=== PATIENT | male | born 1980 | race Hispanic/Latino ===

== ENCOUNTER 2017-06-18 16:07 | Emergency (ER) | payer SELFPAY ==
[2017-06-18 16:07] VITALS: BMI 20.7
[2017-06-18 16:28] VITALS: BP 113/68; PULSE 71; RESP 18; TEMP 97.2; O2SAT 98
--- NOTE | 2017-06-18 17:51 | C.PDOC ---
History Of Present Illness 37 y/o male presents to ED with complaints of facial fullness and back pain " for couple of weeks". Patient denies denies recent fall, recent injury, numbness , weakness, bladder/bowel incontinence and reports no PMD. No other complaints at this time. Chief Complaint (Nursing): Hip Pain History Per: Patient History/Exam Limitations: no limitations Onset/Duration Of Symptoms: Days Current Symptoms Are (Timing): Still Present Past Medical History Reviewed: Historical Data, Nursing Documentation, Vital Signs Vital Signs: Last Vital Signs Temp 97.2 F L 06/18/17 16:20 Pulse 71 06/18/17 16:20 Resp 18 06/18/17 16:20 BP 113/68 06/18/17 16:20 Pulse Ox 98 06/18/17 17:51 - Medical History PMH: No Chronic Diseases Surgical History: No Surg Hx Family History: States: No Known Family Hx - Social History Hx Alcohol Use: Yes Hx Substance Use: No - Immunization History Hx Tetanus Toxoid Vaccination: Yes Hx Influenza Vaccination: No Hx Pneumococcal Vaccination: No Review Of Systems Genitourinary: Negative for: Dysuria, Hematuria Musculoskeletal: Positive for: Back Pain Skin: Negative for: Rash Neurological: Negative for: Weakness, Numbness, Change in Speech, Dizziness Physical Exam - Physical Exam Appears: Non-toxic, No Acute Distress Skin: Normal Color, Warm, Dry, No Rash Head: Atraumatic, Normacephalic Eye(s): bilateral: Normal Inspection, PERRL, EOMI Oral Mucosa: Moist Neck: Supple Chest: Symmetrical Cardiovascular: Rhythm Regular Respiratory: Normal Breath Sounds, No Rales, No Rhonchi, No Wheezing Gastrointestinal/Abdominal: Soft, No Tenderness, No Guarding, No Rebound Back: No CVA Tenderness, No Paraspinal Tenderness Neurological/Psych: Oriented x3, Normal Speech, Normal Motor, Normal Sensation Gait: Steady ED Course And Treatment O2 Sat by Pulse Oximetry: 98 (RA) Pulse Ox Interpretation: Normal Disposition - Disposition Referrals: [facility] [Outside] [facility] [Outside] Disposition: HOME/ ROUTINE Disposition Time: 16:40 Condition: GOOD Additional Instructions: Thank you for letting us take care of you today. The emergency medical care you received today was directed at your acute symptoms. If you were prescribed any medication, please fill it and take as directed. It may take several days for your symptoms to resolve. Return to the Emergency Department if your symptoms worsen, do not improve, or if you have any other problems. Please contact your doctor or call one of the physicians/clinics you have been referred to that are listed on the Patient Visit Information form that is included in your discharge packet. Bring any paperwork you were given at discharge with you along with any medications you are taking to your follow up visit. Our treatment cannot replace ongoing medical care by a primary care provider (PCP) outside of the emergency department. Thank you for allowing the [facility] team to be part of your care today. Follow up with the clinic in 3-5 days for outpatient care and management. Prescriptions: Fluticasone Propionate [Flonase] 1 spr NA BID #1 bottle Ibuprofen [Motrin] 600 mg PO Q6 PRN #20 tab PRN Reason: Pain, Moderate (4-7) Instructions: Allergies (ED) Forms: Work Excuse - Clinical Impression Clinical Impression: Seasonal allergies - Scribe Statement The provider has reviewed the documentation as recorded by the Aylin Monzon All medical record entries made by the Mauricioiblindsey were at my direction and personally dictated by me. I have reviewed the chart and agree that the record accurately reflects my personal performance of the history, physical exam, medical decision making, and the department course for this patient. I have also personally directed, reviewed, and agree with the discharge instructions and disposition.
== END 2017-06-18 16:54 | disposition home or self-care (01) ==
LOC: C.ER 16:07
DX: J30.2 Other seasonal allergic rhinitis (principal)

== ENCOUNTER 2017-06-25 04:42 | Emergency (ER) | payer SELFPAY ==
[2017-06-25 04:43] VITALS: BMI 20.7
[2017-06-25 04:55] VITALS: RESP 18
--- NOTE | 2017-06-25 05:32 | C.PDOC ---
History Of Present Illness 37 year old male presents to the ER with a complaint of pain to the left groin radiating to the left thigh and knee since last week that worsens with movement. Patient was seen on 06/18/17 and given medication for the same pain but states it is not helping. Denies weakness, numbness, or trauma. Time Seen by Provider: 06/25/17 04:54 Chief Complaint (Nursing): Lower Extremity Problem/Injury History Per: Patient History/Exam Limitations: no limitations Onset/Duration Of Symptoms: Days Current Symptoms Are (Timing): Still Present Recent travel outside of the [place]: No Past Medical History Reviewed: Historical Data, Nursing Documentation, Vital Signs Vital Signs: Last Vital Signs Temp 97.8 F 06/25/17 05:51 Pulse 76 06/25/17 05:51 Resp 18 06/25/17 05:51 BP 117/65 06/25/17 05:51 Pulse Ox 99 06/25/17 05:51 - Medical History PMH: No Chronic Diseases Surgical History: No Surg Hx Family History: States: Unknown Family Hx - Social History Hx Alcohol Use: Yes Hx Substance Use: Yes - Immunization History Hx Tetanus Toxoid Vaccination: Yes Hx Influenza Vaccination: No Hx Pneumococcal Vaccination: No Review Of Systems Genitourinary: Positive for: Other (Groin pain) Musculoskeletal: Positive for: Leg Pain Neurological: Negative for: Weakness, Numbness Physical Exam - Physical Exam Appears: Non-toxic, No Acute Distress Skin: Normal Color, Warm, Dry Head: Atraumatic, Normacephalic Eye(s): bilateral: Normal Inspection Oral Mucosa: Moist Gastrointestinal/Abdominal: Soft, No Tenderness Male Genital: Inguinal Tenderness (Left. No hernia) Extremity: Normal ROM (x4) Neurological/Psych: Oriented x3, Normal Speech, Normal Motor, Normal Sensation Gait: Steady ED Course And Treatment O2 Sat by Pulse Oximetry: 100 (Room air) Pulse Ox Interpretation: Normal Progress Note: Flexeril and motrin administered. Patient reports improvement of the pain and instructed to follow up with PMD. Disposition - Disposition Referrals: Non [facility] Provider, [Primary Care Provider] - Disposition: HOME/ ROUTINE Disposition Time: 05:30 Condition: STABLE Additional Instructions: Please follwo up in clinic Take medications prescribed Return to ER if worse Prescriptions: Cyclobenzaprine [Cyclobenzaprine HCl] 10 mg PO HS #7 tab Ibuprofen [Motrin] 600 mg PO Q6H #14 tab Instructions: Groin Strain (ED) Forms: [employer] (Japanese) - Clinical Impression Clinical Impression: Muscle strain - PA / RN [employer] / Resident Statement MD/DO has reviewed & agrees with the documentation as recorded. - Scribe Statement The provider has reviewed the documentation as recorded by the Scribe Harjeet Marinelli All medical record entries made by the Scribe were at my direction and personally dictated by me. I have reviewed the chart and agree that the record accurately reflects my personal performance of the history, physical exam, medical decision making, and the department course for this patient. I have also personally directed, reviewed, and agree with the discharge instructions and disposition.
[2017-06-25 05:52] VITALS: BP 117/65; PULSE 76; TEMP 97.8
[2017-06-25 06:18] VITALS: O2SAT 100
== END 2017-06-25 05:53 | disposition home or self-care (01) ==
LOC: C.ER 04:42 → SUPCPDRO 04:42 → C.ER 05:53
DX: S39.011A Strain of muscle, fascia and tendon of abdomen, initial encounter (principal); X58.XXXA Exposure to other specified factors, initial encounter; Y92.89 Other specified places as the place of occurrence of the external cause